=== PATIENT | male | born 1980 | race Caucasian/White ===

== ENCOUNTER 2020-04-18 11:36 | Emergency (ER) | payer OTHER ==
[~2020-04-18] VITALS: Ht 175.3 cm; Wt 68.1 kg
--- NOTE | 2020-04-18 13:38 | RAD ---
EXAM: AP, lateral and lumbosacral spot views of the lumbar spine DATE: 04/18/2020 1:16 PM INDICATION: Reason: LOWER BACK PAIN / Spl. Instructions: / History: COMPARISON: No Prior FINDINGS: Vertebral body heights are preserved. Moderate L5-S1 disc height loss. Facet degenerative changes L3-4 and below. No spondylolisthesis. IMPRESSION: No acute fracture or subluxation. Electronically signed by: Juno Suárez MD (04/18/2020 1:35 PM) [id number]
[2020-04-18] MEDS ORDERED: IBUPROFEN 200 MG TABLET. PO ONE (14:00)
[2020-04-18] MEDS ORDERED: HYDROcodone/APAP 10/325 1 TAB TABLET PO ONE (14:00)
--- NOTE | 2020-04-18 14:18 | PHYS DOC ---
Past Medical History Past Medical History: No Pertinent History Past Surgical History: No Surgical History Smoking Status: Never Smoker Alcohol Use: None General Adult EDM: Chief Complaint: BACK PAIN OR INJURY HPI: HPI: Patient is a 39 year old male presented to the ER due to lower back pain. 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 He was on a trailer when a piece of equipment fell on his back. He was having lower back pain that radiating to his left leg. Patient denied any bowel or bladder incontinent. THe pain became more severe with any type of movement of his back. His was taking him to [facility] but as he was trying to get out of his car in the parking lot, the pain became more severe and he passed out from the pain for a few second. patient denied any chest pain, no a bdominal pain, no shortness of air. No nausea or vomiting. So his brought him here for evaluation. Review of Systems: Review of Systems: Constitutional: Denies fever or chills. [] Eyes: Denies change in visual acuity. [] HENT: Denies nasal congestion or sore throat. [] Respiratory: Denies cough or shortness of breath. [] Cardiovascular: Denies chest pain or edema. [] GI: Denies abdominal pain, nausea, vomiting, bloody stools or diarrhea. [] : Denies dysuria. [] Musculoskeletal: POSITIVE FOR LOWER BACK PAIN Integument: Denies rash. [] Neurologic: Denies headache, focal weakness or sensory changes. [] Endocrine: Denies polyuria or polydipsia. [] Lymphatic: Denies swollen glands. [] Psychiatric: Denies depression or anxiety. [] Heart Score: Risk Factors: Risk Factors: DM, Current or recent (<one month) smoker, HTN, HLP, family history of CAD, obesity. Risk Scores: Score 0 - 3: 2.5% MACE over next 6 weeks - Discharge Home Score 4 - 6: 20.3% MACE over next 6 weeks - Admit for Clinical Observation Score 7 - 10: 72.7% MACE over next 6 weeks - Early Invasive Strategies Current Medications: Current Medications Medications (Trade) Dose Ordered Sig/Rosie Start Time Stop Time Status Last Admin Dose Admin Acetaminophen/ Hydrocodone Bitart (Lortab 10/325) 1 tab 1X ONCE 04/18/20 14:00 04/18/20 14:01 DC 04/18/20 13:36 1 TAB Ibuprofen (Motrin) 600 mg 1X ONCE 04/18/20 14:00 04/18/20 14:01 DC 04/18/20 13:36 600 MG Allergies: Allergies: Allergies Coded Allergies Type Severity Reaction Last Updated Verified No Known Drug Allergies 04/18/20 No Physical Exam: PE: Constitutional: Well developed, well nourished, no acute distress, non-toxic appearance. [] HENT: Normocephalic, atraumatic, bilateral external ears normal, oropharynx moist, no oral exudates, nose normal. [] Eyes: PERRLA, EOMI, conjunctiva normal, no discharge. [] Neck: Normal range of motion, no tenderness, supple, no stridor. [] Cardiovascular:Heart rate regular rhythm, no murmur [] Lungs & Thorax: Bilateral breath sounds clear to auscultation [] Abdomen: Bowel sounds normal, soft, no tenderness, no masses, no pulsatile masses. [] Skin: Warm, dry, no erythema, no rash. [] Back: NO OBVIOUS DEFORMITY, NO BONY STEP OFF, NO BRUISE OR CONTUSION. THERE IS PARASPINAL MUSCLE TENDERNESS TO PALPATION ON LEFT LOWER LUMBAR SPINE AREA. Extremities: No tenderness, no cyanosis, no clubbing, ROM intact, no edema. [] Neurologic: Alert and oriented X 3, normal motor function, normal sensory function, no focal deficits noted. NO SADDLE ANESTHESIA Psychologic: Affect normal, judgement normal, mood normal. [] Current Patient Data: Vital Signs: Vital Signs Date Time Temp Pulse Resp B/P (MAP) Pulse Ox O2 Delivery O2 Flow Rate FiO2 04/18/20 13:36 16 98 Room Air 04/18/20 11:59 98.6 51 104/69 (81) 98.6 EKG: EKG: [] Radiology/Procedures: Radiology/Procedures: [][facility] [address] [place], [place] [id number] IMAGING REPORT Signed PATIENT: MARA CABALLERO ACCOUNT: [id number] : 1980 LOCATION: ER AGE: 39 SEX: M EXAM STATUS: REG ER ORD. PHYSICIAN: PAVAN PEREZ DO REASON: LOWER BACK PAIN PROCEDURE: LUMBAR SPINE 2-3V EXAM: AP, lateral and lumbosacral spot views of the lumbar spine DATE: 04/18/2020 1:16 PM INDICATION: Reason: LOWER BACK PAIN / Spl. Instructions: / History: COMPARISON: No Prior FINDINGS: Vertebral body heights are preserved. Moderate L5-S1 disc height loss. Facet degenerative changes L3-4 and below. No spondylolisthesis. IMPRESSION: No acute fracture or subluxation. Electronically signed by: Juno Mcguire MD (04/18/2020 1:35 PM) [id number] DICTATED and SIGNED BY: JUNO MCGUIRE MD DATE: 04/18/20 9478 Course & Med Decision Making: Course & Med Decision Making Pertinent Labs and Imaging studies reviewed. (See chart for details) Patient was given pain medication in the ER, felt much better, was able to move with slight pain. Patient will be discharged home. he will need to follow up with a family doctor for outpatient evaluation with MRI of his lumbar spine. Dragon Disclaimer: Dragon Disclaimer: This electronic medical record was generated, in whole or in part, using a voice recognition dictation system. Departure Departure Impression: Primary Impression: Back pain due to injury Disposition: 01 HOME, SELF-CARE Condition: STABLE Referrals: LARRY BARAJAS MD Patient Instructions: Back Pain, Adult Additional Instructions: Please call this doctor for outpatient evaluation with MRI of your lumbar spine. Scripts Cyclobenzaprine Hcl (CYCLOBENZAPRINE HCL) 10 Mg Tablet 1 TAB PO TID PRN for MUSCLE SPASMS for 10 Days, #20 TAB Prov: PAVAN PEREZ DO 04/18/20 Prednisone (PREDNISONE) 20 Mg Tablet 1 TAB PO DAILY, #7 TAB Prov: PAVAN PEREZ DO 04/18/20 Naproxen Sodium (ANAPROX DS) 550 Mg Tablet 1 TAB PO BID PRN for PAIN for 15 Days, #30 TAB 0 Refills Prov: PAVAN PEREZ DO 04/18/20 Hydrocodone/Apap 5-325 (NORCO 5-325 TABLET) 1 Each Tablet 1 TAB PO PRN Q6HRS PRN for PAIN, #20 TAB 0 Refills Prov: PAVAN PEREZ DO 04/18/20 Justicifation of Admission Dx: Justifications for Admission: Justification of Admission Dx: N/A PAVAN PEREZ DO Apr 18, 2020 14:18
[2020-04-18] MEDS ORDERED: ORPHENADRINE CITRATE 60 MG/2 ML VIAL. IM ONE (15:30)
[2020-04-18] MEDS ORDERED: MORPHINE SULFATE 4 MG/ML VIAL. IM ONE (15:30)
[2020-04-18] MEDS ORDERED: methylPREDNISolone SOD SUCC PF 125 MG/2 ML VIAL. IM ONE (15:30)
[2020-04-18 17:00] VITALS: BP 98/62
[2020-04-18] MEDS ORDERED: CYCL10TA2 PO (17:13)
[2020-04-18] MEDS ORDERED: NAPR-682 PO (17:13)
[2020-04-18] MEDS ORDERED: PRED20TA PO (17:13)
[2020-04-18] MEDS ORDERED: HYDR-3164 PO (17:13)
--- NOTE | 2020-04-19 06:20 | EKG ---
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
== END 2020-04-18 17:45 | disposition home or self-care (01) ==
LOC: ER 11:36
DX: M54.5 Low back pain (principal); G89.11 Acute pain due to trauma; W20.8XXA Other cause of strike by thrown, projected or falling object, initial encounter; Y93.89 Activity, other specified; Y92.89 Other specified places as the place of occurrence of the external cause; Y99.8 Other external cause status
CPT/HCPCS: 72100; 93005; 96372; 99285; J2270; J2360; J2930